=== PATIENT | male | born 1930 | race Caucasian/White ===

== ENCOUNTER 2018-03-20 13:59 | Emergency (ER) | payer MEDICARE, BC ==
[2018-03-20] MEDS ORDERED: Ibuprofen 400 MG Tab PO ONE (16:17)
--- NOTE | 2018-03-20 16:26 | EDM.PDOC ---
ED HPI GENERAL MEDICAL PROBLEM - General Chief Complaint: General Stated Complaint: FLU LIKE SYMPTOMS, TICK BITES, CHILLS Time Seen by Provider: 03/20/18 16:10 Source of Information: Reports: Patient History Limitations: Reports: Other (no old records) - History of Present Illness INITIAL COMMENTS - FREE TEXT/NARRATIVE: 87 yo male from [place] spends his summer mos here and so has no doctor. He has been having body aches and joint pains for the past roughly 5 days so comes to the ER for this. He has not had a rash or fever. No FAIRCHILD. No self tx. Is worried about tick dz. 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 (see below) (none) Generalized Pain Score (Numeric/FACES): 5 - Related Data Allergies Allergy/AdvReac Type Severity Reaction Status Date / Time No Known Allergies Allergy Verified 03/20/18 14:31 Home Meds: Home Meds Allopurinol [Zyloprim] 100 mg PO 03/20/18 [History] Aspirin [Rosa Chewable] 81 mg PO DAILY 03/20/18 [History] Dutasteride 0.5 mg PO DAILY 03/20/18 [History] Enalapril [Vasotec] 20 mg PO DAILY 03/20/18 [History] Indapamide 2.5 mg PO DAILY 03/20/18 [History] Indomethacin, Submicronized [Tivorbex] 20 mg PO DAILY 03/20/18 [History] Labetalol [Normodyne] 100 mg PO DAILY 03/20/18 [History] Mecobalamin [B-12] 1,000 mcg SL DAILY 03/20/18 [History] Simvastatin [Zocor] 5 mg PO BEDTIME 03/20/18 [History] Tamsulosin [Flomax] 0.4 mg PO DAILY 03/20/18 [History] amLODIPine Besylate [Amlodipine Besylate] 10 mg PO 03/20/18 [History] Past Medical History HEENT History: Reports: Cataract Cardiovascular History: Reports: Blood Clots/VTE/DVT, High Cholesterol, Hypertension Gastrointestinal History: Reports: Cholelithiasis Genitourinary History: Reports: BPH Musculoskeletal History: Reports: Arthritis, Back Pain, Chronic, Gout, Other ( See Below) Other Musculoskeletal History: 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 Neurological Surgical History: Reports: Discectomy Dermatological Surgical History: Reports: Skin Biopsy Social & Family History - Tobacco Use Smoking Status *Q: Never Smoker - Caffeine Use Caffeine Use: Reports: Coffee - Recreational Drug Use Recreational Drug Use: No ED ROS GENERAL - Review of Systems Review Of Systems: See Below Constitutional: Reports: No Symptoms HEENT: Reports: No Symptoms Respiratory: Reports: No Symptoms Cardiovascular: Reports: No Symptoms Endocrine: Reports: No Symptoms GI/Abdominal: Reports: No Symptoms : Reports: No Symptoms Musculoskeletal: Reports: Other (diffuse body aches/joint pains) Skin: Reports: No Symptoms Neurological: Reports: No Symptoms Psychiatric: Reports: No Symptoms ED EXAM, GENERAL - Physical Exam Exam: See Below Exam Limited By: No Limitations General Appearance: Alert, WD/WN, No Apparent Distress Eye Exam: Bilateral Eye: Normal Inspection, PERRL Ears: Normal External Exam, Normal Canal, Hearing Grossly Normal Ear Exam: Bilateral Ear: Auricle Normal, Canal Normal Nose: Normal Inspection, Normal Mucosa, No Blood Throat/Mouth: Normal Inspection, Normal Lips, Normal Oropharynx, Normal Voice, No Airway Compromise Head: Atraumatic, Normocephalic Neck: Normal Inspection Respiratory/Chest: No Respiratory Distress, Lungs Clear, Normal Breath Sounds, No Accessory Muscle Use Cardiovascular: Regular Rate, Rhythm, No Edema GI/Abdominal: Normal Bowel Sounds, Soft, Non-Tender, No Distention Back Exam: No: CVA Tenderness (R), CVA Tenderness (L) Extremities: Normal Inspection, Normal Range of Motion, Non-Tender, No Pedal Edema Neurological: Alert, Oriented, CN II-XII Intact, Normal Cognition, No Motor/ Sensory Deficits Psychiatric: Normal Affect, Normal Mood Skin Exam: Warm, Dry, Intact, Normal Color, No Rash Lymphatic: No Adenopathy Course - Vital Signs Last Recorded V/S: Last Vital Signs Temp 36.7 C 03/20/18 17:12 Pulse 54 L 03/20/18 17:12 Resp 16 03/20/18 17:12 BP 142/69 H 03/20/18 17:12 Pulse Ox 94 L 03/20/18 17:12 - Orders/Labs/Meds Orders: Active Orders 24 hr Category Date Time Status HUMAN GRANULOCYTIC INESSA-HGE Routine Lab 03/20/18 16:30 Received LYME, TOTAL AB TEST/REFLEX Routine Lab 03/20/18 16:30 Received Labs: Laboratory Tests 03/20/18 03/20/18 Range/Units 16:30 16:30 WBC 2.4 L (4.5-11.0) K/uL RBC 4.77 (4.30-5.90) M/uL Hgb 14.8 (12.0-15.0) g/dL Hct 43.2 (40.0-54.0) % MCV 91 (80-98) fL MCH 31 (27-31) pg MCHC 34 (32-36) % Plt Count 205 (150-400) K/uL C-Reactive Protein 2.14 H (0.0-0.3) mg/dL Meds: Medications Discontinued Medications Generic Name Dose Route Start Last Admin Trade Name Juanitoq PRN Reason Stop Dose Admin Ibuprofen 400 mg 03/20/18 16:17 03/20/18 16:35 Motrin PO 03/20/18 16:18 400 mg ONETIME ONE Administration Departure - Departure Time of Disposition: 17:22 Disposition: Home, Self-Care 01 Condition: Good Clinical Impression: Body aches Tick bite Qualifiers: Encounter type: initial encounter Qualified Code(s): W57.XXXA - Bitten or stung by nonvenomous insect and other nonvenomous arthropods, initial encounter Joint pain Qualifiers: Joint pain location: unspecified Qualified Code(s): M25.50 - Pain in unspecified joint - Discharge Information Referrals: PCP,None [Primary Care Provider] - Forms: ED Department Discharge - My Orders Last 24 Hours: My Active Orders 03/20/18 16:30 HUMAN GRANULOCYTIC INESSA-HGE Routine LYME, TOTAL AB TEST/REFLEX Routine - Assessment/Plan Last 24 Hours: My Active Orders 03/20/18 16:30 HUMAN GRANULOCYTIC INESSA-HGE Routine LYME, TOTAL AB TEST/REFLEX Routine
[2018-03-23 19:10] LABS: LYME IGG/IGM AB <0.91 ISR (0.00-0.90)
== END 2018-03-20 17:53 | disposition home or self-care (01) ==
LOC: JP.ED 13:59
DX: M25.50 Pain in unspecified joint (principal); I10 Essential (primary) hypertension; E78.00 Pure hypercholesterolemia, unspecified; Z79.82 Long term (current) use of aspirin; Z79.899 Other long term (current) drug therapy
CPT/HCPCS: 36415; 85027; 86140; 86618; 86666; 99284; A9270